=== PATIENT | male | born 1960 ===

== ENCOUNTER 2021-06-03 06:40 | Day surgery (SDC) | payer OTHER ==
[2021-06-03 07:07] LABS: Absolute Lymphocytes (CBC) 2.1 K/uL (0.7-4.9); Hematocrit 51.8 % (39.6-49.0); Lymphocytes % 19.9 % (15.3-44.8); MPV 10.3 fL (7.6-11.3); RBC Red Blood Cell Count 5.44 M/uL (4.33-5.43)
[2021-06-03] MEDS ORDERED: NA CHLORIDE 0.9% 500 ML ONE (07:11)
[2021-06-03 07:12] LABS: Protime INR 1.02
[2021-06-03 07:24] LABS: Potassium 4.4 mmol/L (3.5-5.1)
[2021-06-03] MEDS ORDERED: MIDAZOLAM HCL 2 MG/2 ML INJ ONE (08:16)
[2021-06-03] MEDS ORDERED: FENTANYL CITR 100 MCG/2 ML ONE (08:16)
[2021-06-03] MEDS ORDERED: HEPA 1000U/500MLS 1,000 UNIT/500 ML BAG IV ONE (08:16)
[2021-06-03] MEDS ORDERED: NA CHLORIDE 0.9% 0 ML ONE (08:17)
[2021-06-03] MEDS ORDERED: ATROPINE SULF 1 MG/10 ML SYR IV ONE (08:17)
[2021-06-03] MEDS ORDERED: ACETYLCYST 20% 4 ML VIAL IH ONE (08:43)
[2021-06-03 10:50] VITALS: BP 99/60; O2SAT 95
--- NOTE | 2021-06-03 19:49 | OP ---
Surgeon: Mo Tavarez MD [employer]: Ms. Holly Crum. The patient will go home today. No change in medical therapy. I will see him in the office in 2 wee ks. Admitted as an outpatient on 06/03/2021 to the Pediatric Immunologist. Description Of Procedure: Mr. Cid is 60, has a new onset congestive heart failure, low ejection f raction, positive stress test, persistent chest pain and shortness of breath, history of atrial fibri llation, asymmetrical septal hypertrophy, brought to the Pediatric Immunologist today as an outpatient, prepped and draped in the routine sterile fashion. Given Versed and fentanyl for sedation. A 6-Turkish sheath i ntroduced in the right common femoral artery using the Seldinger technique and 10 cc of xylocaine. A ngiography there was normal. Angio-Seal was used to close the case. Diagnostic catheterization usin g Jonnie catheter left and right showed a normal left main, had 20% mid RCA stenosis, it was codomin ant. He had a 20% to 30% mid LAD stenosis. The patient tolerated the procedure well. There were no complications. Blood Loss: 0.5 cc. Postoperative Diagnosis: Mild coronary artery disease. Plan: Plan is for medical therapy. JEREMY/BETH Voice ID: [id number] Report ID: [id number]
== END 2021-06-03 11:23 | disposition home or self-care (01) ==
LOC: CCL 06:40
DX: I25.10 Atherosclerotic heart disease of native coronary artery without angina pectoris (principal); I11.0 Hypertensive heart disease with heart failure; I50.21 Acute systolic (congestive) heart failure; I42.2 Other hypertrophic cardiomyopathy; G47.33 Obstructive sleep apnea (adult) (pediatric); G62.9 Polyneuropathy, unspecified; E66.9 Obesity, unspecified; Z68.36 Body mass index [BMI] 36.0-36.9, adult; Z87.891 Personal history of nicotine dependence; Z20.822 Contact with and (suspected) exposure to COVID-19; Z82.49 Family history of ischemic heart disease and other diseases of the circulatory system
CPT/HCPCS: 85025; 80048; 36415; 85610; 85730; 93454; U0003; C1893; C1760; J2250; J3010; J7040; J1644; G0269; J0583